=== PATIENT | female | born 1970 | race African-American/Black ===

== ENCOUNTER 2021-05-17 13:31 | Emergency (ER) | payer OTHER ==
[~2021-05-17] VITALS: Ht 170.2 cm; Wt 163.3 kg
[2021-05-17] MEDS ORDERED: ZESTRIL10 M1 PO (13:53)
[2021-05-17] MEDS ORDERED: CRESTOR10 MG PO (13:53)
[2021-05-17] MEDS ORDERED: LASIX20 MG PO (17:43)
== END 2021-05-17 18:51 | disposition home or self-care (01) ==
LOC: ER 13:31
DX: M79.605 Pain in left leg (principal); M79.604 Pain in right leg; R60.0 Localized edema; I73.9 Peripheral vascular disease, unspecified